=== PATIENT | female | born 1980 | race Two or more races ===

== ENCOUNTER 2021-10-08 09:14 | Emergency (ER) | payer OTHER ==
[2021-10-08 09:50] VITALS: BP 134/57; PULSE 74; TEMP 98.2; BMI 27.3
[2021-10-08] MEDS ORDERED: guaiFENesin/D-METHORPHAN HB 10 ML UNIT-DOSE CUPS PO ONE (10:12)
[2021-10-08] MEDS ORDERED: DEXAMETHASONE LIQUID 0.5 MG/5 ML PO ONE (10:13)
[2021-10-08] MEDS ORDERED: guaiFENesin/D-METHORPHAN HB 10 ML UNIT-DOSE CUPS ONE (10:43)
[2021-10-08] MEDS ORDERED: DEXAMETHASONE SOD PHOSPHATE 10 MG/1 ML VIAL ONE (10:43)
[2021-10-09 11:08] LABS: SARS-CoV-2 NAA Not Detected (Not Detected)
== END 2021-10-08 12:43 | disposition home or self-care (01) ==
LOC: JER 09:14
DX: R05.9 Cough, unspecified (principal); Z11.52 Encounter for screening for COVID-19
CPT/HCPCS: 71045-TC-FY; 87804; 87807; 99284-25; C9803; U0003; U0005

== ENCOUNTER 2022-02-06 14:38 | Emergency (ER) | payer OTHER ==
[2022-02-06 15:09] VITALS: BP 126/84; PULSE 79; TEMP 98.1; BMI 26.2
[2022-02-06] MEDS ORDERED: IBUPROFEN 600 MG TABLET (FP) PO ONE ×2 (16:11→16:12)
== END 2022-02-06 18:14 | disposition home or self-care (01) ==
LOC: JERFT 14:38
DX: R22.0 Localized swelling, mass and lump, head (principal); R60.0 Localized edema
CPT/HCPCS: 70450-TC; 70486-TC; 99284-25

== ENCOUNTER 2022-06-24 07:35 | Emergency (ER) | payer OTHER ==
[2022-06-24 07:47] VITALS: BP 111/61; PULSE 90; RESP 18; TEMP 98.3; BMI 28.3
[2022-06-24] MEDS ORDERED: ALBUTEROL SO4 2.5/IPRATROPIUM 0.5 INH SOL 3 ML VIAL.NEB. NEB ONE ×2 (09:14→09:22)
[2022-06-24] MEDS ORDERED: ACETAMINOPHEN 325 MG TABLET (FP) PO ONE (09:14)
[2022-06-24] MEDS ORDERED: ACETAMINOPHEN 325 MG TABLET (FP) ONE (09:22)
== END 2022-06-24 10:43 | disposition home or self-care (01) ==
LOC: JER 07:35
PROC: 3E0F7GC Introduction of Other Therapeutic Substance into Respiratory Tract, Via Natural or Artificial Opening (ICD-10-PCS; principal; 2022-06-24)
DX: U07.1 COVID-19 (principal)
CPT/HCPCS: 0241U-QW; 71046-TC-FY; 99284-25

== ENCOUNTER 2022-11-27 09:47 | Emergency (ER) | payer OTHER ==
[2022-11-27 10:03] VITALS: BP 104/66; PULSE 85; RESP 18; TEMP 97.9; BMI 28.6
[2022-11-27] MEDS: ALBUTEROL SO4 2.5/IPRATROPIUM 0.5 INH SOL 3 ML VIAL.NEB. NEB SCH ×3 (10:30→11:21)
[2022-11-27] MEDS ORDERED: ALBUTEROL SO4 2.5/IPRATROPIUM 0.5 INH SOL 3 ML VIAL.NEB. NEB ONE (10:42)
== END 2022-11-27 12:34 | disposition home or self-care (01) ==
LOC: JERFT 09:47 → JER 09:47 → JERFT 12:34
PROC: 3E0F7GC Introduction of Other Therapeutic Substance into Respiratory Tract, Via Natural or Artificial Opening (ICD-10-PCS; principal; 2022-11-27)
DX: J45.909 Unspecified asthma, uncomplicated (principal)
CPT/HCPCS: 0241U-QW; 71046-TC-FY; 99284-25

== ENCOUNTER 2023-12-09 09:49 | Emergency (ER) | payer OTHER ==
[2023-12-09 10:10] VITALS: BP 142/57; PULSE 80; RESP 18; TEMP 99.3; BMI 28.6
[2023-12-09] MEDS ORDERED: IBUPROFEN 600 MG TABLET (FP) PO ONE (11:03)
[2023-12-09] MEDS ORDERED: ALBUTEROL SO4 2.5/IPRATROPIUM 0.5 INH SOL 3 ML VIAL.NEB. NEB ONE (11:03)
[2023-12-09] MEDS ORDERED: DEXAMETHASONE SOD PHOSPHATE 10 MG/1 ML VIAL ONE (11:03)
[2023-12-09] MEDS: ALBUTEROL SO4 2.5/IPRATROPIUM 0.5 INH SOL 3 ML VIAL.NEB. NEB ONE (11:09)
[2023-12-09] MEDS: DEXAMETHASONE LIQUID 0.5 MG/5 ML PO ONE (11:09)
[2023-12-09] MEDS: IBUPROFEN 600 MG TABLET (FP) PO ONE (11:09)
== END 2023-12-09 12:30 | disposition home or self-care (01) ==
LOC: JERFT 09:49
DX: R05.9 Cough, unspecified (principal); R09.81 Nasal congestion; J02.9 Acute pharyngitis, unspecified; R07.89 Other chest pain; R50.9 Fever, unspecified; M79.10 Myalgia, unspecified site; J06.9 Acute upper respiratory infection, unspecified; Z20.822 Contact with and (suspected) exposure to COVID-19
CPT/HCPCS: 0241U-QW; 99283-25

== ENCOUNTER 2024-10-02 10:16 | Emergency (ER) | payer OTHER ==
[2024-10-02 10:28] VITALS: BP 145/84; PULSE 79; RESP 18; TEMP 98.7; BMI 33.2
[2024-10-02] MEDS ORDERED: ALBUTEROL SO4 2.5/IPRATROPIUM 0.5 INH SOL 3 ML VIAL.NEB. NEB ONE (11:02)
[2024-10-02] MEDS: ALBUTEROL SO4 2.5/IPRATROPIUM 0.5 INH SOL 3 ML VIAL.NEB. NEB ONE (11:06)
[2024-10-02] MEDS ORDERED: IBUPROFEN 600 MG TABLET (FP) PO ONE (12:47)
[2024-10-02] MEDS ORDERED: ACETAMINOPHEN 500 MG TABLET (FP) ONE (12:47)
[2024-10-02] MEDS: IBUPROFEN 600 MG TABLET (FP) PO ONE (12:52)
[2024-10-02] MEDS: ACETAMINOPHEN 500 MG TABLET (FP) PO ONE (12:53)
== END 2024-10-02 13:00 | disposition home or self-care (01) ==
LOC: JERFT 10:16
PROC: 3E0F7GC Introduction of Other Therapeutic Substance into Respiratory Tract, Via Natural or Artificial Opening (ICD-10-PCS; principal; 2024-10-02)
DX: R05.9 Cough, unspecified (principal); J06.9 Acute upper respiratory infection, unspecified; R51.9 Headache, unspecified; M79.10 Myalgia, unspecified site; R06.2 Wheezing; Z20.822 Contact with and (suspected) exposure to COVID-19
CPT/HCPCS: 0241U-QW; 99283-25